=== PATIENT | female | born 1945 | race Caucasian/White ===

== ENCOUNTER 2017-03-18 22:11 | Emergency (ER) | payer MEDICARE, OTHER ==
[~2017-03-18] VITALS: Ht 165.1 cm; Wt 75.8 kg
[2017-03-18 22:12] VITALS: BP 144/84
[2017-03-18] MEDS ORDERED: BACITRACIN ZINC OINT 500U/GM, 0.9 GM ONE (22:27)
[2017-03-18] MEDS ORDERED: DIPH,PERTUSS(ACELL),TET VAC/PF 0.5 ML IM-VACC ONE ×2 (22:27→22:30)
== END 2017-03-18 22:56 | disposition home or self-care (01) ==
LOC: ED 22:20
DX: S91.302A Unspecified open wound, left foot, initial encounter (principal); Z87.891 Personal history of nicotine dependence; W45.8XXA Other foreign body or object entering through skin, initial encounter; Y93.01 Activity, walking, marching and hiking; Y92.89 Other specified places as the place of occurrence of the external cause; Y99.9 Unspecified external cause status
CPT/HCPCS: 90471; 90715; 99283

== ENCOUNTER 2020-10-15 10:32 | Outpatient (CLI) | payer MEDICARE, OTHER | END 2020-10-15 23:59 | disposition home or self-care (01) | LOC: RAD 10:32 | PROVIDERS: ATTEND Family Medicine | DX: Z12.2 Encounter for screening for malignant neoplasm of respiratory organs (principal); R05 Cough; Z87.891 Personal history of nicotine dependence | CPT/HCPCS: 71271 ==